=== PATIENT | female | born 1935 | race Hispanic/Latino ===

== ENCOUNTER 2020-05-02 09:40 | Inpatient (IN) | payer OTHER, MEDICARE ==
[~2020-05-02] VITALS: Ht 152.4 cm; Wt 81.4 kg
[2020-05-02] MEDS ORDERED: KETOROLAC TROMETHAMINE 15MG/ML ONE (10:24)
[2020-05-02] MEDS ORDERED: HYDROCODONE/ACETAMINOPHEN 10/325 MG TAB ONE (10:25)
[2020-05-02 11:10] LABS: BASOPHILS % (AUTO) 0.5 % (0.0-5.0); HEMATOCRIT 29.7 % (36-48); LYMPHOCYTES % (AUTO) 16.3 % (21.0-51.0); MEAN CORPUSCULAR HEMOGLOBIN 30.8 pg (27.0-33.0); MEAN CORPUSCULAR HGB CONC 33.7 g/dL (32.0-36.0); MEAN CORPUSCULAR VOLUME 91.4 fL (79-99); MONOCYTES % (AUTO) 9.9 % (3.0-13.0); PLATELET COUNT (AUTO) 153 K/uL (130-400); RED BLOOD CELL COUNT(AUTO) 3.25 MIL/uL (4.00-5.50); RED CELL DISTRIBUTION WIDTH 12.5 % (11.0-15.5); WHITE BLOOD COUNT (AUTO) 6.6 K/uL (4.8-10.8)
[2020-05-02 11:19] LABS: CREATININE 1.3 mg/dL (0.5-1.5); POTASSIUM 4.7 mmol/L (3.5-5.1)
[2020-05-02 11:42] LABS: APPEARANCE,URINE Cloudy (CLEAR); BILIRUBIN,URINE Negative (NEGATIVE); COLOR,URINE Yellow (YELLOW); GLUCOSE, URINE (UA) Negative (NEGATIVE); KETONES,URINE Negative (NEGATIVE); LEUKOCYTE ESTERASE ,URINE Small (NEGATIVE); NITRATE,URINE Negative (NEGATIVE); OCCULT BLOOD,URINE Negative (NEGATIVE); PROTEIN,URINE POS 2+ mg/dL (NEGATIVE); UROBILINOGEN,URINE 0.2 mg/dL (0.2-1.0)
[2020-05-02 12:09] LABS: AMORPHOUS SEDIMENT,UR Moderate /LPF (None Seen); BACTERIA,URINE Moderate /HPF (None Seen); RBC,URINE None Seen /HPF (0-1); SQUAMOUS EPITHELIAL CELL,UR 0-2 /HPF (0-2)
[2020-05-02] MEDS ORDERED: DIPHENHYDRAMINE HCL 25 MG CAPSULE ONE (13:40)
[2020-05-02] MEDS ORDERED: CLONIDINE HCL 0.1 MG TABLET PO PRN (19:00)
[2020-05-02] MEDS ORDERED: MAG HYDROX/AL HYDROX/SIMETH ES 30 ML SUSP UDCUP PO PRN (19:00)
[2020-05-02] MEDS ORDERED: GUAIFENESIN SUGAR-FREE 100 MG/5 ML UDCUP PO PRN (19:00)
[2020-05-02] MEDS ORDERED: ZOLPIDEM TARTRATE 5 MG TAB PO PRN (19:00)
[2020-05-02] MEDS ORDERED: IBUPROFEN 800 MG TAB PO PRN (19:00)
[2020-05-02] MEDS ORDERED: POTASSIUM CHLORIDE 10% ELIXIR 20 MEQ/15 ML UDCUP PO PRN (19:00)
[2020-05-02] MEDS ORDERED: NITROGLYCERIN 0.4 MG SL TAB SL PRN (19:00)
[2020-05-02] MEDS ORDERED: SODIUM CHLORIDE 0.9% 10 ML VIAL IVP SCH (19:00)
[2020-05-02] MEDS ORDERED: LACTULOSE 20 GM/30 ML UDCUP PO PRN (19:00)
[2020-05-02] MEDS ORDERED: POTASSIUM CHLORIDE 20MEQ/100ML 100 ML IV PRN (19:00)
[2020-05-02] MEDS ORDERED: POTASSIUM CHLORIDE 20 MEQ ERTAB PO PRN (19:00)
[2020-05-02] MEDS ORDERED: ONDANSETRON HCL 4 MG/2 ML VIAL IVP PRN (19:00)
[2020-05-02] MEDS ORDERED: DIPHENHYDRAMINE HCL 25 MG CAPSULE PO PRN (19:00)
[2020-05-02] MEDS ORDERED: DiphenhydrAMINE HCL 50 MG/ML VIAL IVP PRN (19:00)
[2020-05-02] MEDS ORDERED: LIDOCAINE HCL-MPF 1% 2ML VIAL IJ PRN (19:00)
[2020-05-02] MEDS ORDERED: MORPHINE SULFATE 4 MG/1ML SYG IVP PRN (19:00)
[2020-05-02] MEDS ORDERED: GUAIFENESIN-DM 200/20 MG 10 ML PO PRN (19:00)
[2020-05-02] MEDS ORDERED: MORPHINE SULFATE 2 MG/ML 1ML SYG IVP PRN (19:00)
[2020-05-02] MEDS ORDERED: ACETAMINOPHEN 325 MG TAB PO PRN ×2 (19:00)
[2020-05-02 19:17] VITALS: BP 192/55
[2020-05-02] MEDS ORDERED: PANT40TA54 PO (19:30)
[2020-05-02] MEDS ORDERED: MELO-106 PO (19:30)
[2020-05-02] MEDS ORDERED: LEVO100T12 PO (19:30)
[2020-05-02] MEDS ORDERED: METO50TA18 PO (19:30)
[2020-05-02] MEDS ORDERED: IBUP-2070 PO (19:30)
[2020-05-02] MEDS ORDERED: CALC-898 PO (19:30)
[2020-05-02] MEDS ORDERED: HYDR12.54 PO (19:30)
[2020-05-02] MEDS ORDERED: ONDA-104 PO (19:30)
[2020-05-02] MEDS ORDERED: VALS160T29 PO (19:30)
[2020-05-02] MEDS ORDERED: CARV25TA PO (19:30)
[2020-05-02] MEDS ORDERED: MENT118G TP (19:30)
[2020-05-02] MEDS ORDERED: HYDR-4154 PO (19:30)
[2020-05-02] MEDS ORDERED: FERR325T22 PO (19:30)
[2020-05-02] MEDS ORDERED: DOCU100T PO (19:30)
[2020-05-02] MEDS ORDERED: CLOP75TA32 PO (19:30)
[2020-05-02] MEDS ORDERED: ATOR40TA69 PO (19:30)
[2020-05-02] MEDS ORDERED: ASPI-556 PO (19:30)
[2020-05-02] MEDS ORDERED: INSLAN SQ (19:30)
[2020-05-02] MEDS ORDERED: ACET-3194 PO (19:30)
[2020-05-02] MEDS ORDERED: CLON0.1T PO (19:30)
[2020-05-02] MEDS ORDERED: ISOS60TA4 PO (19:30)
[2020-05-02 19:37] VITALS: BP 134/52
[2020-05-02 23:12] VITALS: BP 121/55
[2020-05-03] VITALS (9 sets, daily range): BP systolic 141–189; BP diastolic 39–75
[2020-05-03 05:19] LABS: BASOPHILS % (AUTO) 0.6 % (0.0-5.0); EOSINOPHILS % (AUTO) 10.4 % (0.0-8.0); HEMATOCRIT 29.2 % (36-48); LYMPHOCYTES % (AUTO) 18.3 % (21.0-51.0); MEAN CORPUSCULAR HEMOGLOBIN 30.3 pg (27.0-33.0); MEAN CORPUSCULAR HGB CONC 33.6 g/dL (32.0-36.0); MEAN CORPUSCULAR VOLUME 90.4 fL (79-99); MONOCYTES % (AUTO) 12.6 % (3.0-13.0); PLATELET COUNT (AUTO) 149 K/uL (130-400); RED BLOOD CELL COUNT(AUTO) 3.23 MIL/uL (4.00-5.50); RED CELL DISTRIBUTION WIDTH 12.4 % (11.0-15.5); WHITE BLOOD COUNT (AUTO) 6.9 K/uL (4.8-10.8)
[2020-05-03 05:26] LABS: B-TYPE NATRIURETIC PEPTIDE 358 pg/mL (0-100)
[2020-05-03 05:28] LABS: CREATININE 1.4 mg/dL (0.5-1.5); POTASSIUM 4.7 mmol/L (3.5-5.1)
[2020-05-03] MEDS ORDERED: DiphenhydrAMINE HCL 50 MG/ML VIAL IV SCH (08:00)
[2020-05-03 08:30] LABS: CREATINE KINASE, TOTAL 61 U/L (21-232); MYOGLOBIN 145 ng/mL (10-92); TROPONIN I < 0.04 ng/mL (0.00-0.06)
[2020-05-03] MEDS: CYCLOBENZAPRINE HCL 10 MG TABLET PO SCH (08:32)
[2020-05-03] MEDS: PREDNISONE 20 MG TABLET PO SCH (08:33)
[2020-05-03] MEDS ORDERED: CARVEDILOL 25 MG TABLET PO ONE (14:03)
[2020-05-03] MEDS ORDERED: HYDRALAZINE HCL 25 MG TABLET ONE (14:03)
[2020-05-03] MEDS: LABETALOL 20 MG/4 ML DISP.SYRIN IV PRN (16:20)
--- NOTE | 2020-05-03 16:30 | NUR ---
MET W FAMILY FOR DCPLANNING. RESIDENT OF [facility] FOR > 4 MONTHS. WENT THERE UNDER HER [employer] TRS. WITH WORSENING DEFICITS. UNABLE OT HOLD THINGS IN HER ARMS, SHOULDER PAIN, PATIENT STATING WANTING TO GO HOME. PATIENT UNABLE TO USE UPPER BODY, UNABLE TO FEED SELF- DAUGHTER STATES NOT ENOUGH SUPPORT FOR MOM TO GO HOME, NO ONE CAN BE THERE 16/06, CAN MEDICAID PROVIDE SUPPORT ? PATIENT CURRENTLY WHEECHAIR BOUND AND REQUIRED ASSISTANCE WITH ALL ADLS ADVISED DARVIN WOODY IS IS POSSIBLE THAT PATIENT CAN HAVE PHYSICAL THERAPY EVAL HERE TO SEE IF ELIGIBLE FOR PHYSICAL THERAPY AT THE FACILITY. INFORMED PRIMARY RN OF NEED FOR PT EVAL, WILL FOLLOW HERE Addendum: 05/03/20 at 1633 by VENITA FARMER RN Amended: Links added.
[2020-05-03] MEDS: CLONIDINE HCL 0.1 MG TABLET PO PRN (18:13)
[2020-05-03] MEDS: LOSARTAN 100 MG TABLET PO SCH (20:37)
[2020-05-03] MEDS: HYDRALAZINE HCL 25 MG TABLET PO SCH (20:38)
[2020-05-03] MEDS: CARVEDILOL 25 MG TABLET PO SCH (20:38)
[2020-05-03] MEDS: INSULIN HUMULIN R 100 UNIT/ML 3ML SQ SCH (20:53)
[2020-05-04 03:10] VITALS: BP 133/33
[2020-05-04 03:59] LABS: HEMATOCRIT 28.4 % (36-48); MEAN CORPUSCULAR HEMOGLOBIN 30.7 pg (27.0-33.0); MEAN CORPUSCULAR HGB CONC 33.8 g/dL (32.0-36.0); MEAN CORPUSCULAR VOLUME 90.7 fL (79-99); RED BLOOD CELL COUNT(AUTO) 3.13 MIL/uL (4.00-5.50); RED CELL DISTRIBUTION WIDTH 12.3 % (11.0-15.5); WHITE BLOOD COUNT (AUTO) 6.2 K/uL (4.8-10.8)
[2020-05-04 04:22] LABS: CREATININE 1.5 mg/dL (0.5-1.5); POTASSIUM 4.7 mmol/L (3.5-5.1)
--- NOTE | 2020-05-04 05:14 | NUR ---
PATIENT'S B/P READING OF 151/39, MORENO PERSONNEL OFFICER WAS PAGED DUE TO A CRITICAL RESULT, INFORMED HIM OF PATIENT'S B/P READING INFORMED HIM PATIENT ASYMPTOMATIC. NO NEW ORDERS RECEIVED.
[2020-05-04] MEDS: INSULIN HUMULIN R 100 UNIT/ML 3ML SQ SCH ×4 (06:48→20:49)
[2020-05-04 08:00] VITALS: BP 145/45
[2020-05-04] MEDS ORDERED: SODIUM CHLORIDE 0.9% 500ML 500 ML IV ONE (09:11)
[2020-05-04] MEDS: PREDNISONE 20 MG TABLET PO SCH (09:51)
[2020-05-04] MEDS: HYDRALAZINE HCL 25 MG TABLET PO SCH ×2 (09:51→20:45)
[2020-05-04] MEDS: CYCLOBENZAPRINE HCL 10 MG TABLET PO SCH (09:53)
[2020-05-04] MEDS: METOPROLOL TARTRATE 50 MG TAB PO SCH (09:53)
[2020-05-04] MEDS: LOSARTAN 100 MG TABLET PO SCH ×2 (09:53→20:44)
[2020-05-04] MEDS: CARVEDILOL 25 MG TABLET PO SCH ×2 (09:54→20:45)
[2020-05-04 11:24] VITALS: BP 150/47
[2020-05-04 16:00] VITALS: BP 161/53
[2020-05-04 19:49] VITALS: BP 175/49
[2020-05-05] VITALS (7 sets, daily range): BP systolic 154–195; BP diastolic 40–68
[2020-05-05] MEDS: INSULIN HUMULIN R 100 UNIT/ML 3ML SQ SCH ×4 (06:08→21:11)
[2020-05-05] MEDS: LOSARTAN 100 MG TABLET PO SCH ×2 (08:54→21:11)
[2020-05-05] MEDS: METOPROLOL TARTRATE 50 MG TAB PO SCH (08:54)
[2020-05-05] MEDS: HYDRALAZINE HCL 25 MG TABLET PO SCH ×2 (08:54→21:10)
[2020-05-05] MEDS: CYCLOBENZAPRINE HCL 10 MG TABLET PO SCH (08:55)
--- NOTE | 2020-05-05 08:55 | NUR ---
Received in nursing report per Nikky Urbina RN that patient had incident of near aspiration when taking morning medications. Per night nurse Bro Woody RN patient was able to tolerate taking night time medications without difficulty. Performed bedside swallow assessment with thin liquid, patient able to tolerate without difficulty swallowing, no dysphagia or residual contents left in mouth. Patient able to tolerate medication pills whole, a few at a time with thin fluids. No coughing noted.
[2020-05-05] MEDS: PREDNISONE 20 MG TABLET PO SCH (08:56)
[2020-05-05] MEDS: CARVEDILOL 25 MG TABLET PO SCH ×2 (09:06→21:10)
[2020-05-05] MEDS: CLONIDINE HCL 0.1 MG TABLET PO PRN (12:04)
--- NOTE | 2020-05-05 12:04 | NUR ---
BP reported by aid is 175/55, hr 58 after morning blood pressure medications administered. Patient asymptomatic and daughter reports that patient's blood pressures have run consistantly elevated and uncontrolled in the past and that it has always been difficult to keep them down. Administered Catapress 0.1 mg PO per MD prn order for SBP > 160. Notified Dr. Ambrosio of blood pressures and clonidine administered. Also notified Dr. Ambrosio of culture and sensitivity for urine culture. Received telephone order for Macrobid 100 mg BID for 14 days and resume home medications and labetolol IV 10 mg once.
[2020-05-05] MEDS ORDERED: LABETALOL 20 MG/4 ML DISP.SYRIN IV SCH (14:30)
--- NOTE | 2020-05-05 14:49 | NUR ---
Called and provided report to Maye Orourke RN with [facility]. Explained that BP has been elevated today and that labetolol IV 10 mg was just administered per physician order. Will recheck BP and call Lisa back with current status.
--- NOTE | 2020-05-05 15:36 | NUR ---
Per Margret from [facility], facility cannot except patient with uncontrolled blood pressure. Recheck of BP after labetolol 10 mg IV Push once is 195/68. Called Dr. Ambrosio on mobile and left message to notify of discharge hold due to BP. Pending response.
--- NOTE | 2020-05-05 16:20 | NUR ---
Notified Dr. Lu Ambrosio of elevated BP 195/68. Received telephone order for hydralazine 100 mg PO once.
[2020-05-05] MEDS ORDERED: HYDRALAZINE HCL 25 MG TABLET PO SCH (16:30)
[2020-05-06] VITALS (7 sets, daily range): BP systolic 147–188; BP diastolic 44–99
[2020-05-06] MEDS: INSULIN HUMULIN R 100 UNIT/ML 3ML SQ SCH ×4 (06:14→20:56)
[2020-05-06] MEDS: PREDNISONE 20 MG TABLET PO SCH (08:20)
[2020-05-06] MEDS: CYCLOBENZAPRINE HCL 10 MG TABLET PO SCH (08:21)
[2020-05-06] MEDS: HYDRALAZINE HCL 25 MG TABLET PO SCH ×3 (08:22→20:54)
[2020-05-06] MEDS: LOSARTAN 100 MG TABLET PO SCH ×2 (08:22→20:55)
[2020-05-06] MEDS: METOPROLOL TARTRATE 50 MG TAB PO SCH (09:00)
[2020-05-06] MEDS: NITROFURANTOIN MONOHYD/M-CRYST 100 MG CAPSULE PO SCH ×2 (09:19→20:54)
[2020-05-06] MEDS: LABETALOL 20 MG/4 ML DISP.SYRIN IV PRN (12:18)
--- NOTE | 2020-05-06 13:00 | NUR ---
Notified Nikky Lin MD, covering for Dr. Ambrosio's patients, of persistent uncontrolled hypertension, asymptomatic and current medication list. Received verbal order to discontinue Lopressor, increase hydralazine dose to 100 mg PO TID, and add amlodipine 5 mg PO daily to medications.
[2020-05-06] MEDS: AMLODIPINE BESYLATE 5 MG TAB PO SCH (14:42)
[2020-05-06] MEDS: CARVEDILOL 25 MG TABLET PO SCH ×2 (14:42→20:55)
[2020-05-06] MEDS: CLONIDINE HCL 0.1 MG TABLET PO PRN (16:43)
[2020-05-07 03:35] VITALS: BP 150/59
[2020-05-07] MEDS: INSULIN HUMULIN R 100 UNIT/ML 3ML SQ SCH ×4 (05:53→20:07)
[2020-05-07] MEDS: CYCLOBENZAPRINE HCL 10 MG TABLET PO SCH (08:33)
[2020-05-07] MEDS: AMLODIPINE BESYLATE 5 MG TAB PO SCH (08:33)
[2020-05-07] MEDS: PREDNISONE 20 MG TABLET PO SCH (08:34)
[2020-05-07] MEDS: NITROFURANTOIN MONOHYD/M-CRYST 100 MG CAPSULE PO SCH ×3 (08:34→21:00)
[2020-05-07] MEDS: LOSARTAN 100 MG TABLET PO SCH ×3 (08:34→21:00)
[2020-05-07] MEDS: HYDRALAZINE HCL 25 MG TABLET PO SCH ×4 (08:35→21:00)
[2020-05-07 08:39] VITALS: BP_SYST 132; BP_SYST 201; BP_DIAS 68; BP_DIAS 83
[2020-05-07] MEDS: CLONIDINE HCL 0.1 MG TABLET PO PRN (11:45)
[2020-05-07 12:35] VITALS: BP 187/67
[2020-05-07] MEDS ORDERED: AMLODIPINE BESYLATE 5 MG TAB PO SCH (14:15)
[2020-05-07] MEDS: CARVEDILOL 25 MG TABLET PO SCH ×3 (14:31→21:00)
--- NOTE | 2020-05-07 14:49 | NUR ---
Left message for Dr. Lin on mobile to notify of high blood pressure of 210/90 after clonidine administered PRN at 11:45 and after morning scheduled amlodipine, hydralazine and losartan. Patient heart rate at 62, denies headache, no flushing noted to face. Denies pain or anxiousness. Laying in bed with daughter at bedside, asymptomatic. Dimmed lights and quieted television to provide calm atmosphere. Bed low, locked. Call arnold within reach.
--- NOTE | 2020-05-07 15:54 | NUR ---
Called Dr. Lin to report consistant high blood pressure in 200's systolic after administering scheduled hydralazine, losartan, carvedilol, amlodipine and PRN ordered clonidine. Left message on mobile.
[2020-05-07 16:00] VITALS: BP 206/76
[2020-05-07] MEDS: LABETALOL 20 MG/4 ML DISP.SYRIN IV PRN ×2 (17:01→21:40)
--- NOTE | 2020-05-07 17:01 | NUR ---
Rosy Gutierrez CNA reports BP of 206/76, heart rate 67. Checked patient, asymptomatic, sleeping in bed with daughter at bedside. Administered 20 mg of labetolol as ordered PRN for systolic pressures >160. Will continue to monitor and recheck blood pressure.
--- NOTE | 2020-05-07 17:05 | NUR ---
Received telephone order to consult [facility] for sustained uncontrolled blood pressures. Paged Dr. Magaly Borrero MD. Dr. Borrero called shortly after, notified of blood pressure activity, history and current medication list and measure to control pressures. Stated he would see patient within the hour.
--- NOTE | 2020-05-07 18:40 | NUR ---
Received verbal order from Magaly Borrero MD for hydrochlorothiazide 25 mg, PO daily. Order place for one now and begin daily tomorrow.
[2020-05-07] MEDS ORDERED: HYDROCHLOROTHIAZIDE 25 MG TABLET ONE (18:41)
[2020-05-07] MEDS ORDERED: HYDROCHLOROTHIAZIDE 25 MG TABLET PO SCH (18:45)
[2020-05-07 19:00] VITALS: BP 189/68
[2020-05-07] MEDS ORDERED: HYDRALAZINE HCL 25 MG TABLET ONE (19:56)
--- NOTE | 2020-05-07 20:10 | NUR ---
[facility] SHIFT ASSESSMENT DONE, PLEASE REFER TO CHART. PT REFUSED PO MEDS, DESPITE EXPLANATION OF BP BEING ELEVATED. DUE INSULIN DOSE ADMINISTERED. PCP ASKED TO TRY TO TALK TO PT TO NO AVAIL. WILL RE-TRY MED PASS LATER. Addendum: 05/07/20 at 2233 by DEVANTE PUGA RN RN Amended: Links added.
--- NOTE | 2020-05-07 21:40 | NUR ---
[facility] PT'S RE-CHECK BP STILL ELEVATED AND STILL REFUSING PO MEDS. PT IS ASYMPTOMATIC, NO DISTRESS NOTED. LABETALOL IV ADMINISTERED. PCP IN AND GAVE PT A BED BATH, TOLERATED ACTIVITY WELL. JESUS PALOMO, IN TO TRY TO CONVINCE PT OF TAKING PO MEDS BUT TO NO AVAIL. KEPT COMFORTABLE IN BED. WILL RE-ASSESS BP.
[2020-05-07 23:00] VITALS: BP 188/70
[2020-05-08] VITALS (7 sets, daily range): BP systolic 129–189; BP diastolic 40–76
[2020-05-08] MEDS: CARVEDILOL 25 MG TABLET PO SCH ×2 (00:04→19:38)
[2020-05-08] MEDS: LOSARTAN 100 MG TABLET PO SCH ×2 (00:04→19:38)
[2020-05-08] MEDS: HYDRALAZINE HCL 25 MG TABLET PO SCH ×3 (00:04→19:38)
[2020-05-08] MEDS: NITROFURANTOIN MONOHYD/M-CRYST 100 MG CAPSULE PO SCH ×2 (00:04→19:37)
--- NOTE | 2020-05-08 00:04 | NUR ---
MEDS PT IS ASKING FOR WATER. PENDING MEDS OFFERED AND PT AGREED TO TAKE THEM. MEDICATED PT, TOLERATED WELL. RE-POSITIONED COMFORTABLY IN BED. CALL LIGHT WITHIN REACH. WILL MONITOR PT.
--- NOTE | 2020-05-08 02:00 | NUR ---
ROUNDS PT FAIRLY ASLEEP WITH RESPIRATIONS EVEN AND UNLABORED. NO NOTED DISTRESS. KEPT UNDISTURBED FOR NOW. WILL MONITOR PT.
[2020-05-08] MEDS: LABETALOL 20 MG/4 ML DISP.SYRIN IV PRN (03:06)
--- NOTE | 2020-05-08 03:20 | NUR ---
V-TACH TELE MONITORING CALLED THAT PT HAD A RUN OF V-TACH 8 BEATS THEN WENT BACK TO [place] ON THE 50'[place]. PT IS RESTING IN BED. NO COMPLAINTS VERBALIZED. WILL MONITOR CLOSELY.
[2020-05-08] MEDS: CLONIDINE HCL 0.1 MG TABLET PO PRN (04:54)
--- NOTE | 2020-05-08 04:55 | NUR ---
[facility]S RE-CHECKED PT'S BZ=847/69, HR=58 AND [place] ON THE TELE MONITOR. NO COMPLAINTS VERBALIZED. MEDICATED WITH CLONIDINE PO. PT HAS NOT HAD BM SINCE THE . LACTULOSE PO GIVEN. KEPT COMFORTABLE. WILL RE-ASSESS PT.
[2020-05-08] MEDS: INSULIN HUMULIN R 100 UNIT/ML 3ML SQ SCH ×4 (06:16→20:17)
--- NOTE | 2020-05-08 07:33 | NUR ---
MD DR CORTEZ IN TO SEE PT. REFERRED PT'S ELEVATED BP AND RUNS OF V-TACH EARLY THIS AM. YASSINE ANTONIO NURSE, TAKING OVER CARE AT THIS TIME.
[2020-05-08] MEDS: HYDROCHLOROTHIAZIDE 25 MG TABLET PO SCH (10:31)
[2020-05-08] MEDS: AMLODIPINE BESYLATE 5 MG TAB PO SCH (10:32)
[2020-05-08] MEDS: PREDNISONE 20 MG TABLET PO SCH (10:34)
[2020-05-08] MEDS: CYCLOBENZAPRINE HCL 10 MG TABLET PO SCH (10:35)
[2020-05-09] MEDS: AMLODIPINE BESYLATE 5 MG TAB PO SCH (03:37)
[2020-05-09] MEDS: CLONIDINE HCL 0.1 MG TABLET PO PRN (03:37)
[2020-05-09 03:43] VITALS: BP 172/50
[2020-05-09 05:01] LABS: HEMATOCRIT 33.4 % (36-48); MEAN CORPUSCULAR HEMOGLOBIN 30.1 pg (27.0-33.0); MEAN CORPUSCULAR HGB CONC 32.9 g/dL (32.0-36.0); MEAN CORPUSCULAR VOLUME 91.5 fL (79-99); RED BLOOD CELL COUNT(AUTO) 3.65 MIL/uL (4.00-5.50); RED CELL DISTRIBUTION WIDTH 12.6 % (11.0-15.5); WHITE BLOOD COUNT (AUTO) 7.1 K/uL (4.8-10.8)
[2020-05-09 05:36] LABS: CREATININE 1.4 mg/dL (0.5-1.5)
[2020-05-09] MEDS: INSULIN HUMULIN R 100 UNIT/ML 3ML SQ SCH ×3 (06:03→17:19)
[2020-05-09 07:30] VITALS: BP 151/49
--- NOTE | 2020-05-09 08:35 | NUR ---
DISCHARGE DISPOSITION BACK TO [facility]- PATIENT IS CUSTOMER SUPPORT EXECUTIVE CARE RESIDENT. ADMISSION FOR CHEST PAIN, AMI RULED OUT, PATIENT STAYED FOR CONTINUED BP. Addendum: 05/09/20 at 0840 by VENITA FARMER RN CM Amended: Links added.
[2020-05-09] MEDS: HYDROCHLOROTHIAZIDE 25 MG TABLET PO SCH (08:38)
[2020-05-09] MEDS: LOSARTAN 100 MG TABLET PO SCH (08:38)
[2020-05-09] MEDS: HYDRALAZINE HCL 25 MG TABLET PO SCH ×2 (08:39→15:01)
[2020-05-09] MEDS: PREDNISONE 20 MG TABLET PO SCH (08:41)
[2020-05-09] MEDS: NITROFURANTOIN MONOHYD/M-CRYST 100 MG CAPSULE PO SCH (08:42)
[2020-05-09] MEDS: CYCLOBENZAPRINE HCL 10 MG TABLET PO SCH (08:42)
[2020-05-09] MEDS: CARVEDILOL 25 MG TABLET PO SCH (08:43)
[2020-05-09 11:00] VITALS: BP 153/52
--- NOTE | 2020-05-09 15:30 | NUR ---
[facility] WAS CALLED FOR PT TRANSFER. PT AWAITING COMMERCIAL DESIGNER.
--- NOTE | 2020-05-09 15:32 | NUR ---
SPOKE TO ALEXANDRE (NURSE) RECEIVING PT AT [facility] REGAURDING PT DC TO TRANSFER.
--- NOTE | 2020-05-09 16:50 | NUR ---
TELE AND IV REMOVED, TIP INTACT. PT DRESSED, AWAITING EMS COLLECTION ANALYST.
== END 2020-05-09 17:45 | DRG 554 ==
LOC: EDH 09:40 → OBSVTOIN 12:55 → EDHIP 12:55 → 3BH 18:12
PROVIDERS: ADMIT Family Medicine; ATTEND Family Medicine
DX: M19.011 Primary osteoarthritis, right shoulder (principal); N39.0 Urinary tract infection, site not specified; L03.90 Cellulitis, unspecified; Z16.24 Resistance to multiple antibiotics; I50.32 Chronic diastolic (congestive) heart failure; R07.89 Other chest pain; M19.012 Primary osteoarthritis, left shoulder; E11.9 Type 2 diabetes mellitus without complications; E66.9 Obesity, unspecified; R53.81 Other malaise; K59.00 Constipation, unspecified; I11.0 Hypertensive heart disease with heart failure; E03.9 Hypothyroidism, unspecified; Z68.35 Body mass index [BMI] 35.0-35.9, adult; Z86.73 Personal history of transient ischemic attack (TIA), and cerebral infarction without residual deficits
CPT/HCPCS: 36415; 71045; 73030; 80048; 81001; 82550; 82948; 83874; 83880; 84484; 85025; 85027; 87077; 87088; 87186; 87635; 93005; G0378; J1200; J1815; J1885; J2270; J7040; Q0163

== ENCOUNTER → 2020-05-15 | Outpatient (CLI) | payer OTHER, MEDICARE ==
[~2020-05-15] MED LIST: ACET-3194 PO; ASPI-556 PO; ATOR40TA69 PO; CALC-898 PO; CARV25TA PO; CLON0.1T PO; CLOP75TA32 PO; DOCU100T PO; FERR325T22 PO; HYDR-4154 PO; HYDR12.54 PO; IBUP-2070 PO; INSLAN SQ; ISOS60TA4 PO; LEVO100T12 PO; MELO-106 PO; MENT118G TP; METO50TA18 PO; ONDA-104 PO; PANT40TA25 PO; VALS160T29 PO
== END | disposition home or self-care (01) ==
LOC: RAH 08:36
PROVIDERS: ATTEND Family Medicine
DX: I10 Essential (primary) hypertension (principal)
CPT/HCPCS: 76770; 93975